=== PATIENT | female | born 1945 ===

== ENCOUNTER 2018-04-06 08:00 | Outpatient (CLI) | payer OTHER ==
[~2018-04-06] VITALS: Ht 152.4 cm; Wt 68.0 kg
== END 2018-04-06 08:15 | disposition home or self-care (01) ==
LOC: OFIC 805 08:00
DX: H90.42 Sensorineural hearing loss, unilateral, left ear, with unrestricted hearing on the contralateral side (principal); H93.12 Tinnitus, left ear; R42 Dizziness and giddiness; D33.3 Benign neoplasm of cranial nerves

== ENCOUNTER 2018-04-27 07:18 | Outpatient (CLI) | payer OTHER | END 2018-04-27 07:35 | disposition home or self-care (01) | LOC: OFIC 805 07:18 | DX: D33.3 Benign neoplasm of cranial nerves (principal); H93.12 Tinnitus, left ear; H90.42 Sensorineural hearing loss, unilateral, left ear, with unrestricted hearing on the contralateral side; R42 Dizziness and giddiness ==

== ENCOUNTER 2018-11-02 07:10 | Outpatient (CLI) | payer OTHER ==
[~2018-11-02] VITALS: Ht 152.4 cm; Wt 68.0 kg
== END 2018-11-02 08:56 | disposition home or self-care (01) ==
LOC: OFIC 805 07:10
DX: H90.42 Sensorineural hearing loss, unilateral, left ear, with unrestricted hearing on the contralateral side (principal); H93.12 Tinnitus, left ear; D33.3 Benign neoplasm of cranial nerves; R42 Dizziness and giddiness